=== PATIENT | male | born 2000 | race Caucasian/White ===

== ENCOUNTER 2023-08-24 06:05 | Emergency (ER) | payer SELFPAY ==
[~2023-08-24] VITALS: Ht 177.8 cm; Wt 77.1 kg
[2023-08-24] MEDS ORDERED: CEphaleXIN 500 MG CAPSULE ONE (07:28)
[2023-08-24] MEDS ORDERED: TDAP DIPH,PERTUSS,TET VAC/PF 0.5 ML DISP.SYRIN IM ONE (07:28)
[2023-08-24] MEDS: CEphaleXIN 500 MG CAPSULE PO ONE (07:32)
[2023-08-24] MEDS: TDAP DIPH,PERTUSS,TET VAC/PF 0.5 ML DISP.SYRIN IM ONE (07:33)
[2023-08-24] MEDS ORDERED: NEOMY/BACITRA/POLYMYXIN B OINT UD PACKET TP ONE (08:06)
[2023-08-24 08:41] VITALS: BP 139/89; O2SAT 99
[2023-08-24] MEDS: NEOMY/BACITRA/POLYMYXIN B OINT UD PACKET TP ONE (09:57)
== END 2023-08-24 08:43 | disposition home or self-care (01) ==
LOC: ER 06:24
DX: S61.011A Laceration without foreign body of right thumb without damage to nail, initial encounter (principal); X58.XXXA Exposure to other specified factors, initial encounter; Y93.89 Activity, other specified; Y92.89 Other specified places as the place of occurrence of the external cause; Y99.8 Other external cause status
CPT/HCPCS: 73140; 90715; A4606; A4663